=== PATIENT | male | born 1950 | race Caucasian/White ===

== ENCOUNTER 2016-04-20 10:03 | Observation (INO) | payer BC ==
[~2016-04-20] VITALS: Ht 182.9 cm; Wt 99.1 kg
[2016-04-20] VITALS (7 sets, daily range): BP systolic 121–153; BP diastolic 73–87; PULSE 66–73; TEMP 36.4–36.6; O2SAT 93–95; Ht 182.9 cm; Wt 99.1 kg
[~2016-04-20 10:03] MED LIST: ACC10 PO; ASPEC81 PO; CMD2 PO; METO25TA3 PO; OMEG10007 PO; SIMV80TA2 PO; ZNTT/150 PO
[2016-04-20] MEDS ORDERED: QUIN5TAB PO (10:34)
[2016-04-20] MEDS ORDERED: WARF2TAB8 PO ×2 (10:34)
[2016-04-20] MEDS ORDERED: ROSU20TA PO (10:34)
[2016-04-20] MEDS ORDERED: RANI300T2 PO (10:34)
[2016-04-20] MEDS ORDERED: ASPCH81X PO (10:34)
[2016-04-20 10:46] LABS: BASO % 0.2 %; BASO ABS # 0.02 K/uL (0-0.2); COMPLETE YES; EOS % 0.9 %; HEMATOCRIT 50.5 % (42-52); IG% 0.8 %; LYMPH % 20.9 %; LYMPH ABS # 2.72 K/uL (1.2-3.4); MEAN CELL VOLUME 92.8 fL (80-100); MEAN CORPUSCULAR HEMOGLOBIN 32.7 pg (25-34); MEAN CORPUSCULAR HGB CONC 35.2 g/dl (32-36); MEAN PLATELET VOLUME 11.2 fL (7.4-10.4); MONO % 12.6 %; NEUT % 64.6 %; PLATELET COUNT 171 K/uL (130-400); RED BLOOD COUNT 5.44 M/uL (4.7-6.1)
--- NOTE | 2016-04-20 10:46 | DIAGNOSTIC IMAGING REPORT ---
CHEST ONE VIEW PORTABLE CLINICAL HISTORY: Shortness of breath COMPARISON STUDY: No previous studies for comparison. FINDINGS: The heart is enlarged. There is mild interstitial pulmonary edema. There is no lobar consolidation. There are no significant pleural effusions.[ IMPRESSION: Cardiomegaly and mild interstitial pulmonary edema. Electronically signed by: Serafin Olmedo M.D. 04/20/2016 10:45 AM Dictated Date/Time: 04/20/2016 10:44 AM
[2016-04-20 11:15] LABS: ALKALINE PHOSPHATASE 77 U/L (45-117); ALT/SGPT 37 U/L (12-78); AST/SGOT 24 U/L (15-37); BLOOD UREA NITROGEN 22 mg/dl (7-18); BUN/CREATININE RATIO 24.1 (10-20); CALCIUM 8.3 mg/dl (8.5-10.1); CARBON DIOXIDE 25 mmol/L (21-32); CHLORIDE 107 mmol/L (98-107); CREATININE 0.92 mg/dl (0.60-1.40); GLUCOSE 97 mg/dl (70-99); POTASSIUM 3.9 mmol/L (3.5-5.1); SODIUM 143 mmol/L (136-145)
[2016-04-20 11:52] LABS: URINE APPEARANCE CLEAR (CLEAR); URINE BILIRUBIN NEG (NEG); URINE COLOR YELLOW; URINE NITRITE NEG (NEG); URINE PH 7.5 (4.5-7.5); URINE SPECIFIC GRAVITY 1.021 (1.000-1.030); UROBILINOGEN NEG (NEG); ZZUR CULT IF INDIC CLEAN CATCH NO
[2016-04-20 12:09] LABS: MANUAL MICROSCOPIC REQUIRED? NO; REVIEW REQ? NO
[2016-04-20] MEDS ORDERED: ASPIRIN 81 MG CHEW PO STA (12:16)
[2016-04-20 12:28] LABS: INR 3.6 (0.9-1.1); PROTHROMBIN TIME (PATIENT) 40.1 SECONDS (9.0-12.0)
[2016-04-20] MEDS ORDERED: NITROGLYCERIN 0.4 MG SL PER TAB CHARGE SL PRN (12:45)
[2016-04-20] MEDS ORDERED: ALUMINUM/MAGNESIUM/SIMETH (MAALOX MAX) 30 ML UDC PO PRN (12:45)
[2016-04-20] MEDS ORDERED: POLYETHYLENE (MIRALAX) 17 GM PACK PO PRN (12:45)
[2016-04-20] MEDS ORDERED: ACETAMINOPHEN 325 MG TAB PO PRN (12:45)
[2016-04-20] MEDS ORDERED: MAGNESIUM HYDROXIDE SUSP 30 ML UDC PO PRN (12:45)
[2016-04-20] MEDS ORDERED: ONDANSETRON INJ 2 MG/ML 2 ML VIAL IV PRN (12:45)
[2016-04-20] MEDS ORDERED: ZOLPIDEM TARTRATE 5 MG TAB PO PRN (12:45)
--- NOTE | 2016-04-20 13:27 | History and Physical ---
History & Physical Date & Time of Service: Apr 20, 2016 at 13:09 Chief Complaint: Sob, Low Back Pain, Bloated Primary Care Physician: Matthew Lopez M.D. History of Present Illness Source: patient, family, clinic records, hospital records Patient seen and examined. 66 year old male with PMHx of CAD s/p stents, chronic Afib on Coumadin, HTN, HLD and tobacco abuse presents to the ED complaining of SOB x 2-3 days. Patient reports when he lays down at night he has been becoming SOB, he reports he wakes up in the middle of the night and has to sit up to catch his breath. He went to see outpatient weekend care who referred him to the ED because of his history. Patient also reports he has been having a dull nagging low back pain that he rates as a 3/10. He reports he using 1 pillow at night. He denies fevers, chills, URI symptoms, chest pain, CANALES , palpitations, nausea, vomiting, diarrhea, dysuria, incontinence, numbness/ tingling, calf pain and edema. He reports he sleeps with one pillow at night. Patient recently had a trigger finger release and has been on a Lovenox bridge. In the ED VS are stable, CXR shows mild congestion, Robert are negative x 1, EKG shows ST and T wave changes. He received 324mg Aspirin. He will be observed for further workup and treatment. Past Medical/Surgical History Medical Problems: (1) A-fib Status: Chronic (2) Anticoagulation goal of INR 2 to 3 Status: Chronic (3) Bicuspid aortic valve Status: Chronic (4) CAD (coronary artery disease) Status: Chronic (5) Depression Status: Chronic (6) Finger amputation, traumatic Status: Chronic (7) GERD (gastroesophageal reflux disease) Status: Chronic (8) HLD (hyperlipidemia) Status: Chronic (9) HTN (hypertension) Status: Chronic (10) Tobacco abuse Status: Chronic Surgical Problems: (1) H/O colonoscopy Status: Chronic (2) H/O hemorrhoidectomy Status: Chronic (3) History of appendectomy Status: Chronic (4) History of PTCA Status: Chronic (5) S/P trigger finger release Status: Chronic (6) Stented coronary artery Status: Chronic Family History Diabetes mellitus FH: heart disease Hypertension Social History Smoking Status: Current Every Day Smoker Alcohol Use: none Marital Status: Housing status: lives with family Occupational Status: retired Multi-Drug Resistant Organisms History of MDRO: No Allergies Coded Allergies: No Known Allergies (Verified , 04/20/16) Home Medications Scheduled Aspirin (Aspirin Chewable), 81 MG PO DAILY Metoprolol Succ (Toprol Xl) (Toprol-Xl), 25 MG PO DAILY Quinapril Hcl (Accupril), 10 MG PO DAILY Ranitidine Hcl (Zantac), 150 MG PO BID Rosuvastatin Calcium (Crestor), 20 MG PO DAILY Warfarin Sod (Coumadin *), 4 MG PO T, W, R, S, S Warfarin Sod (Jantoven), 2 MG PO MWF Warfarin Sod (Jantoven), 4 MG PO [id number] Review of Systems Constitutional: No chills, No fever Eyes: No worsening of vision ENT: No nasal symptoms Respiratory: + shortness of breath, No cough, No dyspnea on exertion Cardiovascular: + PND, + orthopnea, No chest pain, No claudication, No edema, No palpitations Abdomen: No constipation, No diarrhea, No nausea, No pain Musculoskeletal: + swelling, No calf pain Genitourinary - Male: No dysuria Neurologic: No numbness/tingling, No vertigo Psychiatric: No anxiety Endocrine: No fatigue Hematologic / Lymphatic: No abnormal bleeding/bruising, No clotting problems Integumentary: No itch, No rash Allergic / Immunologic: No environmental allergies Physical Exam Vital Signs Date Time Temp Pulse Resp B/P Pulse Ox O2 Delivery O2 Flow Rate FiO2 04/20/16 13:01 73 18 152/97 04/20/16 11:28 76 22 134/76 93 Room Air 04/20/16 10:36 71 04/20/16 10:05 36.5 72 18 152/85 96 Room Air General Appearance: + pertinent finding (Very pleasant WD/WN 66 year old male lying in bed in NAD with at bedside ) Head: normocephalic, atraumatic Eyes: PERRL, EOMI, sclerae normal ENT: hearing grossly normal, pharynx normal Neck: supple, no JVD Respiratory/Chest: chest non-tender, lungs clear, normal breath sounds, no respiratory distress, no accessory muscle use Cardiovascular: no edema, no gallop, no JVD, no murmur, normal peripheral pulses, + irregularly irregular (rate rate in the 70s ) Abdomen/GI: normal bowel sounds, non tender, soft Back: normal inspection, no muscle spasm Extremities/Musculoskelatal: no calf tenderness, normal capillary refill, no pedal edema Neurologic/Psych: alert, oriented x 3, + pertinent finding (no motor or sensory deficits noted on gross exam ) Skin: normal color, warm/dry, no rash Lymphatic: no adenopathy Diagnostics Laboratory Results Results Past 24 Hours Test 04/20/16 10:35 04/20/16 11:42 04/20/16 12:29 Range/Units White Blood Count 13.00 4.8-10.8 K/uL Red Blood Count 5.44 4.7-6.1 M/uL Hemoglobin 17.8 14.0-18.0 g/dL Hematocrit 50.5 42-52 % Mean Corpuscular Volume 92.8 80-100 fL Mean Corpuscular Hemoglobin 32.7 25-34 pg Mean Corpuscular Hemoglobin Concent 35.2 32-36 g/dl Platelet Count 171 130-400 K/uL Mean Platelet Volume 11.2 7.4-10.4 fL Neutrophils (%) (Auto) 64.6 % Lymphocytes (%) (Auto) 20.9 % Monocytes (%) (Auto) 12.6 % Eosinophils (%) (Auto) 0.9 % Basophils (%) (Auto) 0.2 % Neutrophils # (Auto) 8.40 1.4-6.5 K/uL Lymphocytes # (Auto) 2.72 1.2-3.4 K/uL Monocytes # (Auto) 1.64 0.11-0.59 K/uL Eosinophils # (Auto) 0.12 0-0.5 K/uL Basophils # (Auto) 0.02 0-0.2 K/uL RDW Standard Deviation 47.0 36.4-46.3 fL RDW Coefficient of Variation 14.0 11.5-14.5 % Immature Granulocyte % (Auto) 0.8 % Immature Granulocyte # (Auto) 0.10 0.00-0.02 K/uL Prothrombin Time 40.1 9.0-12.0 SECONDS Prothromb Time International Ratio 3.6 0.9-1.1 D-Dimer < 190 0-500 ug/L FEU Sodium Level 143 136-145 mmol/L Potassium Level 3.9 3.5-5.1 mmol/L Chloride Level 107 98-107 mmol/L Carbon Dioxide Level 25 21-32 mmol/L Anion Gap 11.0 3-11 mmol/L Blood Urea Nitrogen 22 7-18 mg/dl Creatinine 0.92 0.60-1.40 mg/dl Est Creatinine Clear Calc Drug Dose 98.6 ml/min Estimated GFR () 100.1 Estimated GFR (Non- 86.4 BUN/Creatinine Ratio 24.1 10-20 Random Glucose 97 70-99 mg/dl Calcium Level 8.3 8.5-10.1 mg/dl Total Bilirubin 0.7 0.2-1 mg/dl Direct Bilirubin 0-0.2 mg/dl Aspartate Amino Transf (AST/SGOT) 24 15-37 U/L Alanine Aminotransferase (ALT/SGPT) 37 12-78 U/L Alkaline Phosphatase 77 45-117 U/L Troponin I 0.025 0.023 0-0.045 ng/ml Pro-B-Type Natriuretic Peptide 1700 0-900 pg/ml Total Protein 7.0 6.4-8.2 gm/dl Albumin 3.5 3.4-5.0 gm/dl Lipase 101 73-393 U/L Chemistry Specimen Hemolysis Urine Color YELLOW Urine Appearance CLEAR CLEAR Urine pH 7.5 4.5-7.5 Urine Specific [place] 1.021 1.000-1.030 Urine Protein NEG NEG Urine Glucose (UA) NEG NEG Urine Ketones NEG NEG Urine Occult Blood 1+ NEG Urine Nitrite NEG NEG Urine Bilirubin NEG NEG Urine Urobilinogen NEG NEG Urine Leukocyte Esterase NEG NEG Urine WBC (Auto) 0 0-5 /hpf Urine RBC (Auto) 10-30 0-4 /hpf Urine Hyaline Casts (Auto) 0 0-5 /lpf Urine Epithelial Cells (Auto) 5-10 0-5 /lpf Urine Bacteria (Auto) NEG NEG Diagnostic Radiology CXR Per radiologist read: IMPRESSION: Cardiomegaly and mild interstitial pulmonary edema. EKG Afib 74 BPM, ST and T wave changes in anterolateral leads, QTc 468 Impression Assessment and Plan Very pleasant 66 year old male presents to the ED complaining of orthopnea x 2- 3days, workup without overt CHF, some EKG changes noted ORTHOPNEA/ EKG CHANGES/ACUTE CHF WITH DIASTOLIC DYSFUNCTION -Observation in tele -R/O ACS - Risk factors: known CAD, Tobacco abuse, HLD, HTN -Robert negative x1, Ddimer negative, EKG with ST, T wave changes, CXR with mild pulmonary congestion, BNP 1700 -Serial Robert, EKGs -Update Echo last echo 2013 with preserved EF, grade3, diastolic dysfunction -Continue BB, ASA, Statin, ACEI -Monitor in tele -Cardiology consulted for further input -defer cardiology for diuretics dose -monitor vol status /I's and O's -Patient may need stress test defer to cardiology -AHA diet CHRONIC ATRIAL FIBRILLATION -INR 3.6, hold Coumadin tonight -continue BB -monitor in tele CAD S/P STENT -Follows with Bryon Butterfield -Continue BB, Statin, ACEI, Aspirin -additional management as above HLD -continue Statin HTN -stable -continue BB, ACEI -monitor in tele RECENT TRIGGER FINGER RELEASE -followup with ortho as scheduled GERD -continue Zantac TOBACCO ABUSE -Cessation counseling given -Nicotine patch ordered DVT PROPHYLAXIS: Coumadin CODE STATUS: FULL CODE DISPO:observation pending further workup Patient seen in collaboration with Dr. Salas ATTENDING ADDENDUM: pt seen and examined, in agreement with above H&P 66 yo M with past medical hx of CAD s/p PTCA , chronic Afib -presented with SOB -orthopnea for past few days no CANALES , or chest heaviness no cough Cxray shows mild pulmonary congestion , Pro BNP elevated P/E: gen : no apparent distress HEENT: sclera non icteric, PERRLA/EOMI Ht: irregular , no lower ext edema, no JVD lungs: CTA abdomen: soft , non tender ext : no rash or deformity Neuro ; no focal deficit A/P : Acute CHF with diastolic Dysfunction : -admit to Tele serial cardiac markers ordered ECHO ; 2014 with preserved EF, grade3, diastolic dysfunction repeat ECHO ordered cardiology eval requested Chronic Afib; rate controlled cont beta matthew Toprol XL 25 mg PO daily hold Coumadin as INR > 3 Full code rest of the problem list as outlined by Linda Young PA-C VTE Prophylaxis VTE Risk Assessment Done? Y/N: Yes Risk Level: Moderate
[2016-04-20] MEDS ORDERED: IV FLUIDS COMPLETED PRN (14:00)
--- NOTE | 2016-04-20 14:35 | EMERGENCY ROOM VISIT NOTE ---
History Report prepared by Racheal: Abelardo Barry Under the Supervision of: Dr. Travon Ziegler D.O. First contact with patient: 10:08 Chief Complaint: REFERRED BY DOCTOR Stated Complaint: SOB, LOW BACK PAIN, BLOATED History of Present Illness The patient is a 66 year old male who presents to the Emergency Room with complaints of recurrent shortness of breath that started around 2129 last night. The patient was feeling short of breath while laying down. The breathing resolved when he sat up, but would reoccur when he would lay back down. The patient also complains of abdominal bloating or fullness. He denies abdominal pain. The patient's last bowel movement was prior to arrival today, which was normal and did not contain blood. He has had some nonproductive coughing for the past 4-5 days but no rhinorrhea. He also notes that his lower back has been sore. Patient denies headache, change in vision, fevers, chest pain, nausea, vomiting, diarrhea, pain with urination, melena, weakness or numbness of the legs. He denies swelling of the legs. The patient was referred to the ED from [facility]. The patient has a history of CAD and atrial fibrillation. The patient has two coronary stents. He denies any history of asthma, COPD, or cancer. He is a smoker. Source of History: patient Onset: 2129 Position: other (respiratory) Quality: other (short of breath) Timing: other (recurrent) Modifying Factors (Worsening): other (laying flat) Modifying Factors (Relieving): other (sitting up) Associated Symptoms: + back pain, + cough, No abdominal pain, No chest pain , No diarrhea, No fevers, No headache, No hematochezia, No melena, No nausea, No numbness, No urinary symptoms, No vomiting, No weakness Review of Systems See HPI for pertinent positives & negatives. A total of 10 systems reviewed and were otherwise negative. Past Medical & Surgical Medical Problems: (1) A-fib (2) Anticoagulation goal of INR 2 to 3 (3) Bicuspid aortic valve (4) CAD (coronary artery disease) (5) Depression (6) Finger amputation, traumatic (7) GERD (gastroesophageal reflux disease) (8) HLD (hyperlipidemia) (9) HTN (hypertension) (10) SOB (shortness of breath) (11) Tobacco abuse Surgical Problems: (1) H/O colonoscopy (2) H/O hemorrhoidectomy (3) History of appendectomy (4) History of PTCA (5) S/P trigger finger release (6) Stented coronary artery Family History Patient reports no known family medical history. Social History Smoking Status: Current Every Day Smoker Marital Status: Housing Status: lives with family Current/Historical Medications Scheduled Aspirin (Aspirin Chewable), 81 MG PO DAILY Metoprolol Succ (Toprol Xl) (Toprol-Xl), 25 MG PO DAILY Quinapril Hcl (Accupril), 10 MG PO DAILY Ranitidine Hcl (Zantac), 150 MG PO BID Rosuvastatin Calcium (Crestor), 20 MG PO DAILY Warfarin Sod (Coumadin *), 4 MG PO T, W, R, S, S Warfarin Sod (Jantoven), 2 MG PO MWF Warfarin Sod (Jantoven), 4 MG PO [id number] Allergies Coded Allergies: No Known Allergies (Verified , 04/20/16) Physical Exam Vital Signs Date Time Temp Pulse Resp B/P Pulse Ox O2 Delivery O2 Flow Rate FiO2 04/20/16 13:44 75 17 138/86 93 Room Air 04/20/16 13:25 93 Room Air 04/20/16 13:11 69 04/20/16 13:01 73 18 152/97 04/20/16 11:28 76 22 134/76 93 Room Air 04/20/16 10:36 71 04/20/16 10:05 36.5 72 18 152/85 96 Room Air Physical Exam GENERAL: Sitting up in bed, alert, well appearing, well nourished, no distress, non-toxic EYE EXAM: normal conjunctiva. OROPHARYNX: no exudate, no erythema, lips, buccal mucosa, and tongue normal and mucous membranes are moist NECK: supple, no nuchal rigidity, no adenopathy, non-tender, no JVD. LUNGS: Clear to auscultation. Normal chest wall mechanics HEART: no murmurs, S1 normal and S2 normal ABDOMEN: abdomen soft, non-tender, normo-active bowel sounds, no masses, no rebound or guarding. BACK: Back is symmetrical on inspection and there is no deformity, no midline tenderness, no CVA tenderness. SKIN: no rashes and no bruising UPPER EXTREMITIES: upper extremities are grossly normal. LOWER EXTREMITIES: No pitting edema. NEURO EXAM: Normal sensorium, cranial nerves II-XII grossly intact, normal speech, no gross weakness of arms, no gross weakness of legs. Gross sensation intact. Medical Decision & Procedures ER Provider Diagnostic Interpretation: Xray results per the radiologist and my interpretation. CHEST ONE VIEW PORTABLE CLINICAL HISTORY: Shortness of breath COMPARISON STUDY: No previous studies for comparison. FINDINGS: The heart is enlarged. There is mild interstitial pulmonary edema. There is no lobar consolidation. There are no significant pleural effusions.[ IMPRESSION: Cardiomegaly and mild interstitial pulmonary edema. Electronically signed by: Serafin Olmedo M.D. 04/20/2016 10:45 AM Dictated Date/Time: 04/20/2016 10:44 AM Laboratory Results 04/20/16 10:35 Red Blood Count 5.44, Mean Corpuscular Volume 92.8, Mean Corpuscular Hemoglobin 32.7, Mean Corpuscular Hemoglobin Concent 35.2, Mean Platelet Volume 11.2, Neutrophils (%) (Auto) 64.6, Lymphocytes (%) (Auto) 20.9, Monocytes (%) (Auto) 12.6, Eosinophils (%) (Auto) 0.9, Basophils (%) (Auto) 0.2, Neutrophils # (Auto ) 8.40, Lymphocytes # (Auto) 2.72, Monocytes # (Auto) 1.64, Eosinophils # (Auto ) 0.12, Basophils # (Auto) 0.02 04/20/16 10:35 Test 04/20/16 10:35 04/20/16 11:42 04/20/16 12:29 White Blood Count 13.00 K/uL (4.8-10.8) Red Blood Count 5.44 M/uL (4.7-6.1) Hemoglobin 17.8 g/dL (14.0-18.0) Hematocrit 50.5 % (42-52) Mean Corpuscular Volume 92.8 fL (80-100) Mean Corpuscular Hemoglobin 32.7 pg (25-34) Mean Corpuscular Hemoglobin Concent 35.2 g/dl (32-36) Platelet Count 171 K/uL (130-400) Mean Platelet Volume 11.2 fL (7.4-10.4) Neutrophils (%) (Auto) 64.6 % Lymphocytes (%) (Auto) 20.9 % Monocytes (%) (Auto) 12.6 % Eosinophils (%) (Auto) 0.9 % Basophils (%) (Auto) 0.2 % Neutrophils # (Auto) 8.40 K/uL (1.4-6.5) Lymphocytes # (Auto) 2.72 K/uL (1.2-3.4) Monocytes # (Auto) 1.64 K/uL (0.11-0.59) Eosinophils # (Auto) 0.12 K/uL (0-0.5) Basophils # (Auto) 0.02 K/uL (0-0.2) RDW Standard Deviation 47.0 fL (36.4-46.3) RDW Coefficient of Variation 14.0 % (11.5-14.5) Immature Granulocyte % (Auto) 0.8 % Immature Granulocyte # (Auto) 0.10 K/uL (0.00-0.02) Prothrombin Time 40.1 SECONDS (9.0-12.0) Prothromb Time International Ratio 3.6 (0.9-1.1) D-Dimer < 190 ug/L FEU (0-500) Anion Gap 11.0 mmol/L (3-11) Est Creatinine Clear Calc Drug Dose 98.6 ml/min Estimated GFR () 100.1 Estimated GFR (Non- 86.4 BUN/Creatinine Ratio 24.1 (10-20) Calcium Level 8.3 mg/dl (8.5-10.1) Total Bilirubin 0.7 mg/dl (0.2-1) Direct Bilirubin mg/dl (0-0.2) Aspartate Amino Transf (AST/SGOT) 24 U/L (15-37) Alanine Aminotransferase (ALT/SGPT) 37 U/L (12-78) Alkaline Phosphatase 77 U/L (45-117) Pro-B-Type Natriuretic Peptide 1700 pg/ml (0-900) Total Protein 7.0 gm/dl (6.4-8.2) Albumin 3.5 gm/dl (3.4-5.0) Lipase 101 U/L (73-393) Chemistry Specimen Hemolysis Urine Color YELLOW Urine Appearance CLEAR (CLEAR) Urine pH 7.5 (4.5-7.5) Urine Specific [place] 1.021 (1.000-1.030) Urine Protein NEG (NEG) Urine Glucose (UA) NEG (NEG) Urine Ketones NEG (NEG) Urine Occult Blood 1+ (NEG) Urine Nitrite NEG (NEG) Urine Bilirubin NEG (NEG) Urine Urobilinogen NEG (NEG) Urine Leukocyte Esterase NEG (NEG) Urine WBC (Auto) 0 /hpf (0-5) Urine RBC (Auto) 10-30 /hpf (0-4) Urine Hyaline Casts (Auto) 0 /lpf (0-5) Urine Epithelial Cells (Auto) 5-10 /lpf (0-5) Urine Bacteria (Auto) NEG (NEG) Magnesium Level 2.0 mg/dl (1.8-2.4) Troponin I 0.023 ng/ml (0-0.045) Laboratory results per my review. Medications Administered Medications (Trade) Dose Ordered Sig/Rizwan Route Start Time Stop Time Status Last Admin Dose Admin Aspirin (Aspirin Chew) 324 mg NOW STAT PO 04/20/16 12:16 04/20/16 12:17 DC 04/20/16 13:45 324 MG ECG Indication: SOB/dyspnea Rate (beats per minute): 74 Rhythm: atrial fibrillation Findings: ST depression (AvR), T-wave inversion (septal and lateral), other ( normal axis) Change: ST depressions and T wave inversions are new compared to EKG dated 27 March 2008. ED Course ED COURSE: Vital signs were reviewed and showed hypertension. The patients medical record was reviewed The above diagnostic studies were performed and reviewed. ED treatments and interventions as stated above. 1015: The patient was evaluated in room B10. A complete history and physical examination was performed. 1210: Updated the patient. 1216: Aspirin 324 mg PO. 1226: Discussed the case with Dr. Salas, [facility]. The patient will be evaluated. 1230: Upon reevaluation, the patient is stable.I discussed my findings with the patient and he understands and agrees with the treatment plan. Based on the patients age, coexisting illnesses, exam and lab findings the decision to treat as an inpatient was made. The patient remained stable while under my care. The patient will be evaluated for further management. Medical Decision Differential diagnoses includes but is not limited to pneumonia, bronchitis, COPD/Asthma exacerbation, pneumothorax, pulmonary embolism, congestive heart failure, acute coronary syndrome Patient is a 66-year-old male referred in by his primary care doctor or shortness of breath with lying down. He notes that this started last night. On exam he is mild crackles bilaterally but no pitting edema or JVD. Labs show a mild leukocytosis 13,000. BMP along with LFTs and lipase and bilirubin are unremarkable. BNP was elevated mildly at 1700. Troponin was detectable not positive at 0.025. EKG showed flipped T waves and ST depressions in the lateral leads. He had no chest pain or shortness breath currently. He does admit to arm pain about a week ago but notes that has resolved. I question if he had a recent insult which is causing slight CHF and shortness of breath while lying down. He will likely benefit from inpatient workup and echo. Patient family were updated at bedside and he was admitted to internal medicine. Consults Time Called: 1220 Consulting Physician: Carmita Morrell. Returned Call: [phone]: Discussed the case with Carmita Morrell. The patient will be evaluated. Impression Primary Impression: SOB (shortness of breath) Additional Impressions: CHF (congestive heart failure) Acute electrocardiogram changes Scribe Attestation The scribe's documentation has been prepared under my direction and personally reviewed by me in its entirety. I confirm that the note above accurately reflects all work, treatment, procedures, and medical decision making performed by me. Departure Information Dispostion Being Evaluated By Hospitalist Referrals Matthew Lopez M.D. (PCP) Patient Instructions My [facility] Problem Qualifiers Additional Impressions: CHF (congestive heart failure) Congestive heart failure type: unspecified congestive heart failure type Congestive heart failure chronicity: acute Qualified Codes: I50.9 - Heart failure, unspecified
[2016-04-20] MEDS ORDERED: PERFLUTREN LIPID MICROSPHERE (DEFINITY) IV ONE (14:47)
--- NOTE | 2016-04-20 14:51 | CARDIOLOGY CONSULTATION ---
DATE OF CONSULTATION: 04/20/2016 REFERRING PHYSICIAN: Dr. Shona Salas. REASON FOR CONSULTATION: Orthopnea, shortness of breath. CHIEF COMPLAINT ON ADMISSION: Bloating and shortness of breath at night. HISTORY OF PRESENT ILLNESS: Mr. Chung is a 66-year-old gentleman with a past medical history of coronary artery disease, status post RCA stenting, diastolic dysfunction, chronic rate controlled atrial fibrillation, on chronic anticoagulation, hypertension and active tobacco abuse. Presented to the Emergency Department with a 2 night history of orthopnea. He states he has difficulty getting comfortable at night and is taking shallow breaths. He has also fallen asleep and awoken short of breath. Denies any lower extremity edema. His weight is up approximately 4 kilograms at his most recent office visit on 03/07/2016. Denies any recent dietary indiscretions or excessive sodium intake. No recent medication changes. Denies chest pain, cough, fevers, chills, change in functional capacity, nausea, vomiting, diarrhea, dysuria, incontinence, calf tenderness, or claudication. Recent history significant for trigger finger release on Friday. He was treated with a Lovenox bridge postoperatively. In the ER the patient appears comfortable. His x-ray demonstrates mild interstitial congestion, his cardiac enzymes are negative x1; however, his BNP is mildly elevated. He is asymptomatic at rest and sitting upright. REVIEW OF SYSTEMS: The pertinent positive noted above, a comprehensive 10-system review is otherwise negative. PAST MEDICAL HISTORY: 1. Grade 3 diastolic dysfunction. 2. Chronic rate controlled atrial fibrillation. 3. Chronic anticoagulation. 4. Possible bicuspid aortic valve without aortic stenosis. 5. Coronary artery disease with history of Taxus drug-eluting stent implantation to the right coronary artery in 2005. 6. History of inferior wall myocardial infarction. 7. Depression. 8. GERD. 9. Dyslipidemia. 10. Hypertension. PAST SURGICAL HISTORY: 1. Cardiac catheterization with drug-eluting stent implantation. 2. Colonoscopy. 3. Hemorrhoidectomy. 4. Appendectomy. 5. Recent trigger finger release. FAMILY HISTORY: Significant for type 2 diabetes and senile coronary disease. SOCIAL HISTORY: Active tobacco abuse, currently smoking one half pack per day. He has been smoking for more than 40 years. ALLERGIES: No known drug allergies. OUTPATIENT MEDICATIONS: 1. Aspirin 81 mg daily. 2. Toprol-XL 25 mg daily. 3. Quinapril 10 mg daily. 4. Ranitidine 150 mg twice daily. 5. Crestor 20 mg daily. 6. Coumadin 4 mg on , Friday, Friday, 2 mg on Friday, Friday, Friday. DATA: ECG on admission is sinus rhythm with anterolateral T-wave inversions, ECG is not significantly changed when compared to prior tracings. His most recent nuclear stress test was performed in 2013 and was negative for inducible ischemia. Chest x-ray on admission. Cardiomegaly with mild interstitial edema. LABORATORY DATA: ProBNP 1700. Troponins are negative x2 sets. Sodium is 143, potassium 3.9, chloride is 107, CO2 is 25, BUN is 22, creatinine 0.92. White blood cell count is 13,000, hemoglobin is 17.8, platelet count is 171. PHYSICAL EXAMINATION: VITAL SIGNS: Temperature is 36.5 degrees centigrade, pulse is 75 beats per minute and irregular, respiratory rate 17 breaths per minute, blood pressure 138/86, SaO2 is 93% on room air. GENERAL: NAD, awake, alert and oriented x3. He is healthy appearing. HEENT: His mucous membranes are moist. There is no scleral icterus. Conjunctivae are pink. NECK: Supple with mildly elevated jugular venous distention in a 45 degree semi-recombinant position. There is no hepatojugular reflux. HEART: Irregular with a normal S1 and S2. There is no murmur, rub or gallop appreciated. LUNGS: Demonstrates fine crackles at the bases bilaterally. There is no rhonchi or wheeze. ABDOMEN: Soft, nontender, nondistended. Normal bowel sounds. EXTREMITIES: Warm and dry. There is no clubbing, cyanosis or edema. The posterior tibial pulses are 2/4 bilaterally. Radial pulses are 2/4 bilaterally in the upper extremities. NEUROLOGIC: Demonstrates no focal motor deficit. FINAL IMPRESSION: 1. A 66-year-old male with mild acute decompensated diastolic heart failure. 2. Chronic coronary artery disease, history of prior drug-eluting stent implantation to the right coronary artery. No evidence of acute coronary syndrome thus far. 3. Uncontrolled hypertension. 4. Grade 3 diastolic dysfunction. 5. Active tobacco abuse. 6. Mild leukocytosis without overt signs, symptoms of infectious process. 7. Abnormal resting ECG -- unchanged. PLAN AND RECOMMENDATIONS: I have ordered Lasix 40 mg IV x1 now. We will reassess volume status in the a.m. Consider low dose diuretic therapy in the future to help improve blood pressure control. Would consider chlorthalidone or hydrochlorothiazide. Will continue telemetry monitoring during hospitalization. Cardiac enzymes will be trended x3 sets. His Coumadin will be placed on hold due to supratherapeutic INR noted today. Sodium restriction advised. No other medication changes at this time. I will continue to follow along during hospitalization.
[2016-04-20] MEDS ORDERED: FUROSEMIDE INJ 40 MG in SYRINGE 0 ML IV ONE (15:45)
--- NOTE | 2016-04-20 16:11 | ECHOCARDIOGRAM REPORT ---
*NOTICE TO RECEIVING CONSTITUTION PARTY AGENCY This information is strictly Confidential and protected under [place] law. [place] law prohibits you from making any further disclosure of this information unless further disclosure is expressly permitted by the written consent of the person to whom it pertains or is authorized by law. A general authorization for the release of medical or other information is not sufficient for this purpose. Hospital accepts no responsibility if the information is made available to any other person, INCLUDING THE PATIENT. Interpretation Summary * Name: DEBBIE BROWN Study Date: 04/20/2016 03:20 PM BP: 132/87 mmHg * Patient Location: C.2T\S\S235\S\1 HR: 67 * : 1950 (M/d/yyyy) Gender: Male Height: 72 in * Age: 66 yrs Ethnicity: CA Weight: 230 lb * Ordering Physician: Shona Salas * Referring Physician: UNKNOWN * Performed By: Angelic Johnson RDCS * * Reason For Study: AFIB * BSA: 2.3 m2 * History: AFIB * The study was technically adequate. * There is no comparison study available. * -- Conclusions -- * Ejection Fraction = 55-60%. * There is borderline concentric left ventricular hypertrophy. * The left atrium is moderately dilated. * Aortic valve sclerosis mild, without significant aortic valvular stenosis. * Pulse wave TDI of the anterior and posterior mitral annulas demonstrates abnormal LV relaxation Procedure Details * A contrast injection of Definity was performed to improve assessment of LV function. * Contrast was injected into an intravenous site in the right arm. * One vial of Definity ultrasound contrast was diluted in normal saline to a total volume of 10 ml. A total of '2' ml of solution was administered during imaging. * Lot # [id number] of Definity utilized for procedure. * Expiration date MAR 09. * The attending nurse who injected the contrast agent was KAE TAVAREZ. * A complete two-dimensional transthoracic echocardiogram was performed (2D, M-mode, Doppler and color flow Doppler). Left Ventricle * The left ventricle is normal in size. * There is no thrombus. * There is borderline concentric left ventricular hypertrophy. * Ejection Fraction = 55-60%. * Left ventricular systolic function is normal. Right Ventricle * The right ventricle is normal size. * The right ventricular systolic function is normal as assessed by tricuspid annular plane systolic excursion (TAPSE) (normal >1.5 cm). Atria * The left atrium is moderately dilated. * Right atrial size is normal. * There is no evidence of atrial septal defect, but resolution does not allow assessment for a patent foramen ovale. Mitral Valve * The mitral valve is normal. * There is no mitral valve stenosis. * Significant mitral regurgitation is absent. Tricuspid Valve * The tricuspid valve is normal. * There is no tricuspid stenosis. * Significant tricuspid regurgitation is absent. Aortic Valve * The aortic valve is not well visualized. * Aortic valve sclerosis mild, without significant aortic valvular stenosis. * Aortic stenosis is absent. * There is no significant aortic regurgitation. Pulmonic Valve * The pulmonary valve is not well seen, but the Doppler examination is normal without significant regurgitation or stenosis. Great Vessels * The aortic root and proximal ascending aorta are normal sized. Pericardium/Pleural * There is no pericardial effusion. Great Vessels * Normal inferior vena cava diameter and respiratory variation suggests normal central venous pressure. Left Ventricular Diastolic Function * Pulse wave TDI of the anterior and posterior mitral annulas demonstrates abnormal LV relaxation MMode 2D Measurements and Calculations IVSd 1.2 cm IVSs 1.6 cm LVIDd 5.2 cm LVIDs 3.4 cm LVPWd 1.0 cm LVPWs 1.5 cm IVS/LVPW 1.2 FS 34.1 % EDV(Teich) 128.7 ml ESV(Teich) 48.1 ml EF(Teich) 62.7 % EDV(cubed) 139.5 ml ESV(cubed) 40.0 ml EF(cubed) 71.4 % % IVS thick 30.5 % % LVPW thick 42.1 % LV mass(C)d 230.5 grams LV mass(C)dI 102.0 grams/m\S\2 LV mass(C)s 197.0 grams LV mass(C)sI 87.2 grams/m\S\2 SV(Teich) 80.7 ml SI(Teich) 35.7 ml/m\S\2 SV(cubed) 99.6 ml SI(cubed) 44.1 ml/m\S\2 Ao root diam 3.5 cm Ao root area 9.5 cm\S\2 LA dimension 4.5 cm LA/Ao 1.3 LVAd ap4 29.4 cm\S\2 LVLd ap4 7.8 cm EDV(MOD-sp4) 94.9 ml EDV(sp4-el) 94.2 ml LVAs ap4 17.1 cm\S\2 LVLs ap4 6.7 cm ESV(MOD-sp4) 37.7 ml ESV(sp4-el) 37.0 ml EF(MOD-sp4) 60.3 % EF(sp4-el) 60.7 % LVAd ap2 26.1 cm\S\2 LVLd ap2 7.9 cm EDV(MOD-sp2) 74.0 ml EDV(sp2-el) 73.1 ml LVAs ap2 16.0 cm\S\2 LVLs ap2 6.5 cm ESV(MOD-sp2) 35.1 ml ESV(sp2-el) 33.5 ml EF(MOD-sp2) 52.5 % EF(sp2-el) 54.2 % LVLd %diff 1.1 % EDV(MOD-bp) 83.7 ml LVLs %diff -4.32 % ESV(MOD-bp) 36.9 ml EF(MOD-bp) 55.9 % SV(MOD-sp4) 57.2 ml SI(MOD-sp4) 25.3 ml/m\S\2 SV(MOD-sp2) 38.9 ml SI(MOD-sp2) 17.2 ml/m\S\2 SV(MOD-bp) 46.8 ml SI(MOD-bp) 20.7 ml/m\S\2 SV(sp4-el) 57.2 ml SI(sp4-el) 25.3 ml/m\S\2 SV(sp2-el) 39.6 ml SI(sp2-el) 17.5 ml/m\S\2 Doppler Measurements and Calculations MV E max jen 111.8 cm/sec MV dec time 0.20 sec Ao V2 max 127.3 cm/sec Ao max PG 6.5 mmHg Ao max PG (full) 1.7 mmHg LV V1 max PG 4.8 mmHg LV V1 max 109.8 cm/sec
[2016-04-20] MEDS: NICOTINE 7 MG/24 HR TDSY TD SCH (17:03)
[2016-04-20 19:27] LABS: CKMB/CK RATIO 3.8 (0-3.0)
[2016-04-20] MEDS: RANITIDINE HCL 150 MG TAB PO SCH (20:21)
[2016-04-21 03:21] LABS: CKMB/CK RATIO 3.9 (0-3.0)
[2016-04-21 04:00] VITALS: O2SAT 95
[2016-04-21 04:13] VITALS: BP 126/78; PULSE 70; TEMP 36.5; O2SAT 95
[2016-04-21 06:19] LABS: MEAN CELL VOLUME 91.8 fL (80-100); MEAN CORPUSCULAR HEMOGLOBIN 31.6 pg (25-34); MEAN CORPUSCULAR HGB CONC 34.5 g/dl (32-36); MEAN PLATELET VOLUME 11.8 fL (7.4-10.4); PLATELET COUNT 178 K/uL (130-400); RED BLOOD COUNT 5.34 M/uL (4.7-6.1); WHITE BLOOD COUNT 9.09 K/uL (4.8-10.8)
[2016-04-21 06:25] LABS: INR 3.3 (0.9-1.1); PROTHROMBIN TIME (PATIENT) 36.6 SECONDS (9.0-12.0)
[2016-04-21 06:43] LABS: BUN/CREATININE RATIO 17.8 (10-20); CALCIUM 8.6 mg/dl (8.5-10.1); CREATININE 1.2 mg/dl (0.60-1.40); MAGNESIUM 2.2 mg/dl (1.8-2.4); POTASSIUM 3.8 mmol/L (3.5-5.1)
[2016-04-21] MEDS: RANITIDINE HCL 150 MG TAB PO SCH (07:33)
[2016-04-21] MEDS: NICOTINE 7 MG/24 HR TDSY TD SCH (07:35)
[2016-04-21 07:37] VITALS: BP 125/79; PULSE 59; TEMP 36.6; O2SAT 95
--- NOTE | 2016-04-21 08:15 | DIAGNOSTIC IMAGING REPORT ---
CHEST ONE VIEW PORTABLE HISTORY: Shortness of breath. COMPARISON: Chest 04/20/2016. FINDINGS: Cardiomegaly, mild interstitial pulmonary edema, and small bilateral pleural effusions are not significantly changed. No pneumothorax. No new focal lung consolidations. IMPRESSION: No change in the cardiomegaly, small bilateral pleural effusions, and mild interstitial pulmonary edema. Electronically signed by: Chema Rahman M.D. 04/21/2016 8:14 AM Dictated Date/Time: 04/21/2016 8:13 AM
[2016-04-21] MEDS ORDERED: ROSUVASTATIN CALCIUM 20 MG TAB PO SCH (09:00)
[2016-04-21] MEDS ORDERED: METOPROLOL SUCC 25MG EXT REL TAB PO SCH (09:00)
[2016-04-21] MEDS ORDERED: ENALAPRIL MALEATE 10 MG TAB PO SCH (09:00)
[2016-04-21] MEDS ORDERED: QUINAPRIL HCL 5 MG PO SCH (09:00)
[2016-04-21] MEDS ORDERED: ASPIRIN 81 MG CHEW PO SCH (09:00)
--- NOTE | 2016-04-21 10:31 | Cardiology Follow-Up ---
Subjective General Date of Service: Apr 21, 2016. Pt evaluation today including: conversation w/ patient, conversation w/ family , physical exam, lab review, review of studies, conversation w/ oracle consultant, review of inpatient medication list History of Present Illness The patient is a 66 year old male seen in follow up. Slept well last night. No recurrent orthopnea. Diuresed 3.5Liters after one dose IV lasix. present at bedside. Patient admits to excessive sodium and water intake. Allergies Coded Allergies: No Known Allergies (Verified , 04/20/16) Social History Smoking Status: Current Every Day Smoker Hx Alcohol Use - Type And Amou: No Hx Substance Use - Type And Am: No Problem List Medical Problems: (1) Acute electrocardiogram changes Status: Acute (2) CHF (congestive heart failure) Status: Acute Review of Systems Respiratory: + dyspnea at rest, + hemoptysis, No cough, No shortness of breath , No wheezing Cardiac: + palpitations, No PND, No chest pain, No claudication, No edema, No orthopnea Physical Exam Vital Signs Last Vital Signs Documentation Date Time Temp Pulse Resp B/P Pulse Ox O2 Delivery O2 Flow Rate FiO2 04/21/16 08:00 Room Air 04/21/16 07:37 36.6 59 16 125/79 95 Physical Exam Constitutional: General Apperance: well-nourished Level of Distress: NAD Ambulation: ambulating normally Head: normocephalic, atraumatic ENMT: normal ENT inspection Neck: supple, trachea midline Lungs: Respiratory effort: no dyspnea Auscultation: no wheezing, no rhonchi, pertinent finding (Fine crackles at the left base.) Cardiovascular: Heart Auscultation: normal S1, normal S2, no murmurs, irregular rate rhythm Peripheral Pulses: Carotid Pulse: normal on the left, normal on the right Femoral Pulse: normal on the left, normal on the right Musculoskeletal: normal Extremities: no cyanosis, no edema, no clubbing, no ulcers Neurologic: Gait & Station: pertinent finding (No focal motor deficit) Cranial Nerves: grossly intact Assessment and Plan Assessment and Plan FINAL IMPRESSION: 1. Acute decompensated diastolic heart failure. -improved IV diuresis 2. Chronic coronary artery disease, history of prior drug-eluting stent implantation to the right coronary artery. No evidence of acute coronary syndrome thus far. 3. Hypertension - improved 4. Grade 3 diastolic dysfunction. 5. Active tobacco abuse. 6. Mild leukocytosis without overt signs, symptoms of infectious process. 7. Abnormal resting ECG -- unchanged. PLAN AND RECOMMENDATIONS: Recommend PO lasix 20mg daily on . Restart coumadin tomorrow with outpatient anticoagulation clinic follow up. Continue other cardiovascular medications as previously ordered. Recommend sodium restriction. Also, advised patient to avoid excessive water intake as well. Will arrange outpatient cardiology follow up with repeat BMP in one week. Smoking cessation advised. Patient may be discharged from a cardiovascular perspective. Laboratory Results Last 24 Hours Test 04/20/16 10:35 04/20/16 11:42 04/20/16 12:29 04/20/16 18:50 White Blood Count 13.00 K/uL Red Blood Count 5.44 M/uL Hemoglobin 17.8 g/dL Hematocrit 50.5 % Mean Corpuscular Volume 92.8 fL Mean Corpuscular Hemoglobin 32.7 pg Mean Corpuscular Hemoglobin Concent 35.2 g/dl Platelet Count 171 K/uL Mean Platelet Volume 11.2 fL Neutrophils (%) (Auto) 64.6 % Lymphocytes (%) (Auto) 20.9 % Monocytes (%) (Auto) 12.6 % Eosinophils (%) (Auto) 0.9 % Basophils (%) (Auto) 0.2 % Neutrophils # (Auto) 8.40 K/uL Lymphocytes # (Auto) 2.72 K/uL Monocytes # (Auto) 1.64 K/uL Eosinophils # (Auto) 0.12 K/uL Basophils # (Auto) 0.02 K/uL RDW Standard Deviation 47.0 fL RDW Coefficient of Variation 14.0 % Immature Granulocyte % (Auto) 0.8 % Immature Granulocyte # (Auto) 0.10 K/uL Prothrombin Time 40.1 SECONDS Prothromb Time International Ratio 3.6 D-Dimer < 190 ug/L FEU Sodium Level 143 mmol/L Potassium Level 3.9 mmol/L Chloride Level 107 mmol/L Carbon Dioxide Level 25 mmol/L Anion Gap 11.0 mmol/L Blood Urea Nitrogen 22 mg/dl Creatinine 0.92 mg/dl Est Creatinine Clear Calc Drug Dose 98.6 ml/min Estimated GFR () 100.1 Estimated GFR (Non- 86.4 BUN/Creatinine Ratio 24.1 Random Glucose 97 mg/dl Calcium Level 8.3 mg/dl Total Bilirubin 0.7 mg/dl Direct Bilirubin mg/dl Aspartate Amino Transf (AST/SGOT) 24 U/L Alanine Aminotransferase (ALT/SGPT) 37 U/L Alkaline Phosphatase 77 U/L Troponin I 0.025 ng/ml 0.023 ng/ml < 0.015 ng/ml Pro-B-Type Natriuretic Peptide 1700 pg/ml Total Protein 7.0 gm/dl Albumin 3.5 gm/dl Lipase 101 U/L Chemistry Specimen Hemolysis Urine Color YELLOW Urine Appearance CLEAR Urine pH 7.5 Urine Specific [place] 1.021 Urine Protein NEG Urine Glucose (UA) NEG Urine Ketones NEG Urine Occult Blood 1+ Urine Nitrite NEG Urine Bilirubin NEG Urine Urobilinogen NEG Urine Leukocyte Esterase NEG Urine WBC (Auto) 0 /hpf Urine RBC (Auto) 10-30 /hpf Urine Hyaline Casts (Auto) 0 /lpf Urine Epithelial Cells (Auto) 5-10 /lpf Urine Bacteria (Auto) NEG Magnesium Level 2.0 mg/dl Hepatitis C Antibody Screen NEG Total Creatine Kinase 40 U/L Creatine Kinase MB 1.5 ng/ml Creatine Kinase MB Ratio 3.8 Test 04/21/16 02:39 04/21/16 05:23 Total Creatine Kinase 33 U/L Creatine Kinase MB 1.3 ng/ml Creatine Kinase MB Ratio 3.9 Troponin I < 0.015 ng/ml White Blood Count 9.09 K/uL Red Blood Count 5.34 M/uL Hemoglobin 16.9 g/dL Hematocrit 49.0 % Mean Corpuscular Volume 91.8 fL Mean Corpuscular Hemoglobin 31.6 pg Mean Corpuscular Hemoglobin Concent 34.5 g/dl RDW Standard Deviation 45.9 fL RDW Coefficient of Variation 13.8 % Platelet Count 178 K/uL Mean Platelet Volume 11.8 fL Prothrombin Time 36.6 SECONDS Prothromb Time International Ratio 3.3 Sodium Level 142 mmol/L Potassium Level 3.8 mmol/L Chloride Level 103 mmol/L Carbon Dioxide Level 30 mmol/L Anion Gap 9.0 mmol/L Blood Urea Nitrogen 21 mg/dl Creatinine 1.20 mg/dl Est Creatinine Clear Calc Drug Dose 73.8 ml/min Estimated GFR () 72.6 Estimated GFR (Non- 62.6 BUN/Creatinine Ratio 17.8 Random Glucose 94 mg/dl Calcium Level 8.6 mg/dl Magnesium Level 2.2 mg/dl
[2016-04-21] MEDS ORDERED: FURO-85 PO (11:05)
--- NOTE | 2016-04-21 11:14 | Discharge Instructions ---
Discharge Instructions Admission Reason for Admission: Sob (Shortness Of Breath) Discharge Discharge Diagnosis / Problem: CHF exacerbation Discharge Goals Goal(s): Prevent Disease Progression Activity Recommendations Activity Limitations: resume your previous activity . Instructions / Follow-Up Instructions / Follow-Up Call your Primary Care doctor if any of the following symptoms or problems start or get worse: * Shortness of breath or difficulty breathing * Wake up at night short of breath * Chest pain * Cough * Swelling of your hands, feet, or legs * More fatigued or tired with your normal activity * Palpitations - sudden fast heart beats WEIGHT * Weigh yourself every morning after using the bathroom. * Use the same scale. * Wear the same amount of clothing. * Write your weight down on a chart. * Call your Primary Care doctor if you gain more than 2-3 pounds in 1-2 days. MEDICATIONS * Use this discharge instruction sheet for medication instructions. * Take your medications at the time your doctor ordered. * Do not skip a dose of your medicines. * If you miss a dose of medicine, take it as soon as possible, but DO NOT DOUBLE A DOSE. * Read your medicine information when you get home. * Know all of the side effects of your medicine. If in doubt, ask your pharmacist * Call your Primary Care doctor's office if you have any side effects. * Be sure all of your doctors know what medicine and herbs you take (including cold, flu, and herbal medicine). Take the following with you to your follow-up doctor appointments: * Weight Chart * Medication List * List of questions Do not drink excessive alcohol, beer or wine. ADDITIONAL PROVIDER INSTRUCTIONS: 1. Please take all medications as instructed. 2. Smoking cessation is strongly advised 3. Continue to take daily weights as above. Contact provider as instructed. 4. You will need repeat non-fasting bloodwork in one week and follow-up with cardiology in one week after starting new medication. You were provided with a prescription to get this done. Contact Cardiology [facility] office to schedule. You were seen by Dr. Ricci in the hospital. 5. Please hold coumadin today and restart tomorrow with close follow-up with the [facility] for continued management of your dosage. 6. Please consume no more than 2000mg of sodium from all sources daily. 7. Restrict total fluid intake as instructed by Dr. Ricci 8. Please follow-up with Orthopedics as instructed for your post-operative follow-up. 9. Someone will contact you tomorrow to schedule you to see your primary care provider (PCP), Dr. Lopez, for follow-up of this hospitalization. Please bring all paperwork with you to all appointments over the next month. There was a microscopic amount of blood noted in your urine study. This will need to be followed/repeated by your PCP. 10. It was a pleasure taking care of you! Call if you have any questions or problems. You can reach a [facility] hospitalist on duty at [facility] 24 hours a day by calling [phone]. Take care of yourself. Debbie Garay DO [facility] Diet Patient's current hospital diet: AHA Diet (Heart Healthy) Discharge Diet Recommended Diet: AHA Diet (Heart Healthy) Procedures Procedures Performed: Echocardiogram Pending Studies Studies pending at discharge: no Laboratory Results Hemoglobin A1c Test 04/21/16 05:23 Range/Units Medical Emergencies . Who to Call and When: Call 911 or go to the Emergency Room if: * If at any time you feel your situation is an emergency * You have tightness or pain in your chest that does not go away with rest or Nitroglycerin * You are very short of breath even with rest . Non-Emergent Contact Non-Emergency issues call your: Primary Care Provider, Wine Sales Representative . . "Provider Documentation" section prepared by Debbie Garay. VTE Core Measure Inpt VTE Proph given/why not?: Warfarin (Coumadin)
[2016-04-21 11:20] VITALS: BP 125/79; PULSE 59; TEMP 36.6; O2SAT 95
[2016-04-21 11:29] VITALS: BP 123/76; PULSE 65; TEMP 36.5; O2SAT 94
[2016-04-22 06:23] LABS: ESTIMATED AVERAGE GLUCOSE 117 mg/dl; HA1C FLAG Normal (Normal)
--- NOTE | 2016-04-24 08:27 | Discharge Summary ---
Discharge Summary Admission Date: Apr 20, 2016 at 12:33 Discharge Date: Apr 21, 2016 Discharge Disposition: Home Principal Diagnosis: 1. Acute decompensated diastolic heart failure 2. CAD s/p PCI to RCA-chronic 3. Hypertension 4. Grade III diastolic dysfunction 5. Active smoking 6. Microscopic hematuria 7. Leukocytosis without signs or symptoms of infection-resolved 8. Supratherapeutic INR Procedures: Echocardiogram Vaccinations: None. Consultations: Cardiology Pending Studies/Follow-Up: see instructions below Medication Reconciliation New Medications: Furosemide (Lasix) 20 Mg Tab 20 MG PO MWF for 30 Days, #30 TAB Continued Medications: Aspirin (Aspirin Chewable) 81 Mg Chew 81 MG PO DAILY Metoprolol Succ (Toprol Xl) (Toprol-Xl) 25 Mg Tabcr 25 MG PO DAILY, #30 Quinapril Hcl (Accupril) 5 Mg Tab 10 MG PO DAILY Ranitidine Hcl (Zantac) 300 Mg Tab 150 MG PO BID, TAB Rosuvastatin Calcium (Crestor) 20 Mg Tab 20 MG PO DAILY, TAB Discontinued Medications: Warfarin Sod (Jantoven) 2 Mg Tab 2 MG PO MWF, TAB IN THE EVENING Warfarin Sod (Jantoven) 2 Mg Tab 4 MG PO 4XWK, TAB IN THE EVENING ONTUES,THURS,SAT,SUN Admission Information HPI (per Admitting provider): Patient seen and examined. 66 year old male with PMHx of CAD s/p stents, chronic Afib on Coumadin, HTN, HLD and tobacco abuse presents to the ED complaining of SOB x 2-3 days. Patient reports when he lays down at night he has been becoming SOB, he reports he wakes up in the middle of the night and has to sit up to catch his breath. He went to see outpatient weekend care who referred him to the ED because of his history. Patient also reports he has been having a dull nagging low back pain that he rates as a 3/10. He reports he using 1 pillow at night. He denies fevers, chills, URI symptoms, chest pain, CANALES , palpitations, nausea, vomiting, diarrhea, dysuria, incontinence, numbness/ tingling, calf pain and edema. He reports he sleeps with one pillow at night. Patient recently had a trigger finger release and has been on a Lovenox bridge. In the ED VS are stable, CXR shows mild congestion, Robert are negative x 1, EKG shows ST and T wave changes. He received 324mg Aspirin. He will be observed for further workup and treatment. Physical Exam (per Admitting): General Appearance: + pertinent finding (Very pleasant WD/WN 66 year old male lying in bed in NAD with at bedside ) Head: normocephalic, atraumatic Eyes: PERRL, EOMI, sclerae normal ENT: hearing grossly normal, pharynx normal Neck: supple, no JVD Respiratory/Chest: chest non-tender, lungs clear, normal breath sounds, no respiratory distress, no accessory muscle use Cardiovascular: no edema, no gallop, no JVD, no murmur, normal peripheral pulses, + irregularly irregular (rate rate in the 70s ) Abdomen/GI: normal bowel sounds, non tender, soft Back: normal inspection, no muscle spasm Extremities/Musculoskelatal: no calf tenderness, normal capillary refill, no pedal edema Neurologic/Psych: alert, oriented x 3, + pertinent finding (no motor or sensory deficits noted on gross exam ) Skin: normal color, warm/dry, no rash Lymphatic: no adenopathy Hospital Course 66 yo M with CAD s/p RCA stenting, diastolic dysfunction, chronic rate controlled atrial fibrillation on chronic anticoagulation, hypertension and active tobacco use who presented to the ER with a 2-night history of orthopnea. EKG revealed sinus rhythm with anterolateral T-wave inversions, not significantly different from prior tracings. His most recent nuclear stress test was performed in 2013 and was negative for inducible ischemia. CXR revealed cardiomegaly with mild interstitial edema. BNP was elevated at 1700. Serial cardiac enzymes were drawn and were negative. He was admitted for observation overnight and given Lasix with good response. An echo was performed and revealed: * Ejection Fraction = 55-60%. * There is borderline concentric left ventricular hypertrophy. * The left atrium is moderately dilated. * Aortic valve sclerosis mild, without significant aortic valvular stenosis. * Pulse wave TDI of the anterior and posterior mitral annulas demonstrates abnormal LV relaxation Lasix was started on discharge on a MWF schedule. He was seen by Cardiology ( Dr. Ricci) who will follow him up as an outpatient. During his hospitalization his UA was noted to have microscopic blood in it, and this was recommended to be repeated as an outpatient. His INR was also noted to be supratherapeutic and he was instructed to hold it on the day of discharge, and resume the following day with close follow-up with the [facility] later that same week. He verbalized understanding with intent to comply. At discharge, exam was unremarkable and the patient reported feeling much better. He denies any work of breathing, is ambulatory and is tolerating PO. He has a follow-up appointment scheduled with Dr. Lopez on 04/26 and a close follow-up appointment with Cardiology within two weeks. He was discharged in stable condition. Total time spent on discharge = 60 minutes This includes examination of the patient, discharge planning, medication reconciliation, and communication with other providers. Discharge Instructions Discharge Instructions Admission Reason for Admission: Sob (Shortness Of Breath) Discharge Discharge Diagnosis / Problem: CHF exacerbation Discharge Goals Goal(s): Prevent Disease Progression Activity Recommendations Activity Limitations: resume your previous activity . Instructions / Follow-Up Instructions / Follow-Up Call your Primary Care doctor if any of the following symptoms or problems start or get worse: * Shortness of breath or difficulty breathing * Wake up at night short of breath * Chest pain * Cough * Swelling of your hands, feet, or legs * More fatigued or tired with your normal activity * Palpitations - sudden fast heart beats WEIGHT * Weigh yourself every morning after using the bathroom. * Use the same scale. * Wear the same amount of clothing. * Write your weight down on a chart. * Call your Primary Care doctor if you gain more than 2-3 pounds in 1-2 days. MEDICATIONS * Use this discharge instruction sheet for medication instructions. * Take your medications at the time your doctor ordered. * Do not skip a dose of your medicines. * If you miss a dose of medicine, take it as soon as possible, but DO NOT DOUBLE A DOSE. * Read your medicine information when you get home. * Know all of the side effects of your medicine. If in doubt, ask your pharmacist * Call your Primary Care doctor's office if you have any side effects. * Be sure all of your doctors know what medicine and herbs you take (including cold, flu, and herbal medicine). Take the following with you to your follow-up doctor appointments: * Weight Chart * Medication List * List of questions Do not drink excessive alcohol, beer or wine. ADDITIONAL PROVIDER INSTRUCTIONS: 1. Please take all medications as instructed. 2. Smoking cessation is strongly advised 3. Continue to take daily weights as above. Contact provider as instructed. 4. You will need repeat non-fasting bloodwork in one week and follow-up with cardiology in one week after starting new medication. You were provided with a prescription to get this done. Contact Cardiology [facility] [place], [place] office to schedule. You were seen by Dr. Ricci in the hospital. 5. Please hold coumadin today and restart tomorrow with close follow-up with the [facility] Clinic for continued management of your dosage. 6. Please consume no more than 2000mg of sodium from all sources daily. 7. Restrict total fluid intake as instructed by Dr. Ricci 8. Please follow-up with Orthopedics as instructed for your post-operative follow-up. 9. Someone will contact you tomorrow to schedule you to see your primary care provider (PCP), Dr. Lopez, for follow-up of this hospitalization. Please bring all paperwork with you to all appointments over the next month. There was a microscopic amount of blood noted in your urine study. This will need to be followed/repeated by your PCP. 10. It was a pleasure taking care of you! Call if you have any questions or problems. You can reach a [facility] hospitalist on duty at [facility] 24 hours a day by calling [phone]. Take care of yourself. Debbie Garay, DO [facility] Additional Copies To Matthew Lopez M.D.
== END 2016-04-21 12:21 | disposition home or self-care (01) ==
LOC: ENRESERVDT → ENRESERVTM → C.EDB 10:05 → C.2T 12:33
PROVIDERS: ADMIT Hospitalist; ATTEND Hospitalist
DX: I50.31 Acute diastolic (congestive) heart failure (principal); F17.200 Nicotine dependence, unspecified, uncomplicated; I25.10 Atherosclerotic heart disease of native coronary artery without angina pectoris; I10 Essential (primary) hypertension; F32.9 Major depressive disorder, single episode, unspecified; E78.5 Hyperlipidemia, unspecified; I48.2 Chronic atrial fibrillation; K21.9 Gastro-esophageal reflux disease without esophagitis; D72.829 Elevated white blood cell count, unspecified; I25.2 Old myocardial infarction; Z79.01 Long term (current) use of anticoagulants; Z90.49 Acquired absence of other specified parts of digestive tract; Z79.82 Long term (current) use of aspirin; Z98.61 Coronary angioplasty status; Z83.3 Family history of diabetes mellitus; Z82.49 Family history of ischemic heart disease and other diseases of the circulatory system